=== PATIENT | female | born 1980 | race Caucasian/White ===

== ENCOUNTER 2018-07-08 07:31 | Emergency (ER) | payer OTHER ==
[~2018-07-08] VITALS: Ht 154.9 cm; Wt 55.8 kg
[~2018-07-08 07:31] MED LIST: ACETAMINOPHEN-1 EAC1 PO; AMOXICILLIN 50500 MG PO; BACTRIM DS TAB1 EACH PO; EXCEDRIN CAPLE1 EACH; METHADONE HCL 110 M1 GT; NOHOMEMEDICATIONS; NORCO 5-325 TA1 EACH PO; OXYCONTIN; PHENERGAN 25 MG25 M1 PO; PYRIDIUM200 MG PO
[2018-07-08] MEDS ORDERED: MOBIC15 MG PO (07:56)
[2018-07-08] MEDS ORDERED: BACTRIM DS TAB1 EACH PO (07:56)
[2018-07-08 08:20] VITALS: BP 109/82
== END 2018-07-08 08:19 | disposition home or self-care (01) ==
LOC: ER 07:31
DX: L72.8 Other follicular cysts of the skin and subcutaneous tissue (principal); F17.210 Nicotine dependence, cigarettes, uncomplicated

== ENCOUNTER 2019-06-28 21:15 | Emergency (ER) | payer OTHER ==
[~2019-06-28] VITALS: Ht 154.9 cm; Wt 56.2 kg
[~2019-06-28 21:15] MED LIST changes: +MOBIC15 MG PO
[2019-06-28 22:20] VITALS: BP 109/82
== END 2019-06-28 23:59 | disposition home or self-care (01) ==
LOC: ER 21:15
DX: S61.411A Laceration without foreign body of right hand, initial encounter (principal); F17.210 Nicotine dependence, cigarettes, uncomplicated; Z88.2 Allergy status to sulfonamides; Z79.899 Other long term (current) drug therapy; W22.8XXA Striking against or struck by other objects, initial encounter; Y93.89 Activity, other specified; Y92.009 Unspecified place in unspecified non-institutional (private) residence as the place of occurrence of the external cause; Y99.8 Other external cause status